=== PATIENT | female | born 1990 | race Caucasian/White ===

== ENCOUNTER → 2023-01-13 | Emergency (ER) | payer MEDICAID ==
[~2023-01-13] VITALS: Ht 162.6 cm; Wt 45.0 kg
[~2023-01-13] MED LIST: CALC500C3 PO; PREN-96 PO
[2023-01-13 03:03] VITALS: BP 110/80
[2023-01-13 03:29] LABS: Basophils # (auto) 0 10 ^3/uL (0-0.2); Basophils % (auto) 0.4 % (0.0-2.0); Eosinophils # (auto) 0 10 ^3/uL (0-0.8); Hemoglobin 15.8 g/dL (12.2-16.2); Lymphocytes # (auto) 1.6 10 ^3/uL (0.4-5.4); Lymphocytes % (auto) 16.4 % (10.0-50.0); Mean Corpuscular Hemoglobin 33.7 pg (28.0-32.0); Mean Corpuscular Hgb Conc. 35.1 g/dL (32.0-36.0); Mean Corpuscular Volume 95.9 fL (80.0-100.0); Monocytes # (auto) 0.2 10 ^3/uL (0-1.3); Monocytes % (auto) 1.9 % (0.0-12.0); Neutrophils # (auto) 8.2 10 ^3/uL (1.6-8.6); Neutrophils % (auto) 81.3 % (37.0-80.0); Nucleated Red Blood Cells % 0.1 %; Red Cell Distribution Width 15.2 % (11.8-14.3)
[2023-01-13 03:46] LABS: Albumin 4.3 g/dL (3.4-5.0); Calcium 9.1 mg/dL (8.5-10.1); Potassium 3.5 mmol/L (3.5-5.1)
[2023-01-13 03:49] LABS: Bilirubin, Total 0.3 mg/dL (0.2-1.0)
== END | disposition left against medical advice (07) ==
LOC: EDUNIT# 02:36 → ER 02:40 → EDBD 02:40
DX: F41.9 Anxiety disorder, unspecified (principal); R10.2 Pelvic and perineal pain; Z53.21 Procedure and treatment not carried out due to patient leaving prior to being seen by health care provider
CPT/HCPCS: 36415; 80053; 80320; 84484; 84702; 85025; 93005

== ENCOUNTER 2023-02-07 20:51 | Emergency (ER) | payer MEDICAID ==
[~2023-02-07] VITALS: Ht 160 cm; Wt 59.1 kg
[2023-02-07] MEDS ORDERED: SODIUM CHLORIDE 0.9% 1,000 ML IV ONE (21:00)
[2023-02-07] MEDS ORDERED: KETOROLAC TROMETH 60MG/2ML VIAL IM ONE (21:00)
[2023-02-07] MEDS ORDERED: THIAMINE 100mg/ml INJ (200mg/2ml VIAL) IV ONE (21:00)
[2023-02-07] MEDS ORDERED: LORazepam 2MG/ML-1ML VIAL IM ONE (21:00)
[2023-02-07] MEDS ORDERED: ONDANSETRON ODT 4 MG TAB PO ONE (21:00)
[2023-02-07 21:50] LABS: Basophils # (auto) 0.1 10 ^3/uL (0-0.2); Basophils % (auto) 0.9 % (0.0-2.0); Eosinophils # (auto) 0 10 ^3/uL (0-0.8); Hemoglobin 15.8 g/dL (12.2-16.2); Lymphocytes # (auto) 2.2 10 ^3/uL (0.4-5.4); Lymphocytes % (auto) 23.6 % (10.0-50.0); Mean Corpuscular Hemoglobin 33.1 pg (28.0-32.0); Mean Corpuscular Hgb Conc. 33.7 g/dL (32.0-36.0); Mean Corpuscular Volume 98.1 fL (80.0-100.0); Monocytes # (auto) 0.2 10 ^3/uL (0-1.3); Monocytes % (auto) 2.5 % (0.0-12.0); Neutrophils # (auto) 6.7 10 ^3/uL (1.6-8.6); Nucleated Red Blood Cells % 0.1 %; Red Blood Cells 4.79 10^6/uL (4.0-5.20); Red Cell Distribution Width 14.1 % (11.8-14.3); White Blood Cell 9.1 10^3/uL (4.4-10.8)
[2023-02-07] MEDS ORDERED: LORazepam 2MG/ML-1ML VIAL IV ONE (22:00)
[2023-02-07] MEDS ORDERED: KETOROLAC TROMETH 30 MG/ML 1ML VIAL IV ONE (22:00)
[2023-02-07] MEDS ORDERED: ONDANSETRON HCL 4 MG/2 ML VIAL IV ONE (22:00)
[2023-02-07 22:10] LABS: Albumin 4.2 g/dL (3.4-5.0); Calcium 8.4 mg/dL (8.5-10.1); Potassium 4.3 mmol/L (3.5-5.1)
[2023-02-07 22:13] LABS: BUN/Creatinine Ratio 10.5 (10.0-20.0); Bilirubin, Total 0.4 mg/dL (0.2-1.0)
[2023-02-08 05:56] VITALS: BP 100/50
[2023-02-08] MEDS ORDERED: FOLIC ACID 1 MG, MULTIPLE VITAMIN 10 ML, MAGNESIUM SULF SDV 50% 8 MEQ, THIAMINE INJ 100... INJ SCH ×5 (12:00)
== END 2023-02-08 06:18 | disposition home or self-care (01) ==
LOC: ER 20:51 → EDBD 20:51 → ER 02-08 06:18
DX: F10.129 Alcohol abuse with intoxication, unspecified (principal); F32.9 Major depressive disorder, single episode, unspecified; Y90.0 Blood alcohol level of less than 20 mg/100 ml
CPT/HCPCS: 36415; 71045; 80053; 80320; 83690; 83880; 85025; 96361; 96374; 96375; 99284; J1885; J2060; J2405; J3411; J7030

== ENCOUNTER 2023-03-16 18:36 | Emergency (ER) | payer MEDICAID ==
[~2023-03-16] VITALS: Ht 162.6 cm; Wt 56.8 kg
[2023-03-16] MEDS ORDERED: SODIUM CHLORIDE 0.9% 1,000 ML IVB ONE (19:00)
[2023-03-16] MEDS ORDERED: LORazepam 2MG/ML-1ML VIAL IV ONE (19:00)
[2023-03-16] MEDS ORDERED: diphenhdrAMINE HCL 50 MG/1 ML VL IV ONE (19:00)
[2023-03-16 19:43] LABS: Hematocrit 43.3 % (36.0-46.0); Hemoglobin 14.5 g/dL (12.2-16.2); Mean Corpuscular Hemoglobin 33.3 pg (28.0-32.0); Mean Corpuscular Hgb Conc. 33.4 g/dL (32.0-36.0); Mean Corpuscular Volume 99.5 fL (80.0-100.0); Red Blood Cells 4.35 10^6/uL (4.0-5.20); Red Cell Distribution Width 14.6 % (11.8-14.3); White Blood Cell 6.6 10^3/uL (4.4-10.8)
[2023-03-16 20:00] VITALS: TEMP 97.5
[2023-03-16 20:00] LABS: INR 1.12 (0.9-1.15); Partial Thromboplastin Time 27.9 SEC (24.5-34.5); Prothrombin Time 11.7 sec (9.3-11.8)
[2023-03-16 20:03] LABS: Band Neutrophils % (manual) 0; Basophils % (manual) 0 (0.0-2.0); Blast Cells 0; Eosinophils % (manual) 0 (0-7); Metamyelocytes % 0; Myelocytes % 0; Promyelocytes % 0; Reactive Lymphocytes 0
[2023-03-16 20:05] VITALS: PULSE 69; RESP 20; O2SAT 98
[2023-03-16 20:16] LABS: Albumin 3.6 g/dL (3.4-5.0); Calcium 7.7 mg/dL (8.5-10.1); Potassium 3.6 mmol/L (3.5-5.1)
[2023-03-16 20:19] LABS: BUN/Creatinine Ratio 6.9 (10.0-20.0); Bilirubin, Total 0.2 mg/dL (0.2-1.0); Total Protein 6.9 g/dL (6.4-8.2)
[2023-03-16 20:46] LABS: Lymphocytes % (manual) 47 (10.0-50.0); Monocytes % (manual) 4 (0-12); Platelet Estimate Adequate
[2023-03-16 20:54] LABS: Urine Bacteria NONE SEEN /hpf (None Seen); Urine Blood Negative /uL (Negative); Urine Clarity Clear (Clear); Urine Protein, UAD Negative (Negative); Urine Specific Gravity 1.007 (1.001-1.035); Urine Urobilinogen Normal (Negative); Urine WBC <1 /hpf (0 - 5); Urine pH 5.5 (5.0-8.0)
[2023-03-16 21:03] LABS: Urine Color Straw (Yellow)
[2023-03-16 21:17] LABS: Barbiturate Scree,Urine NEGATIVE (NEGATIVE); Benzodiazephine Screen, Urine NEGATIVE (NEGATIVE); Cannabinoid Screen, Urine POSITIVE (NEGATIVE); Cocaine Screen, Urine NEGATIVE (NEGATIVE)
[2023-03-16 21:26] LABS: Amphetamine Screen, Urine NEGATIVE (NEGATIVE); Opiate Scree,Urine NEGATIVE (NEGATIVE); Phencyclidine Screen, Urine NEGATIVE (NEGATIVE)
[2023-03-17 04:28] VITALS: BP 106/63; PULSE 72; RESP 18; O2SAT 98
[2023-03-17] MEDS ORDERED: KETOROLAC TROMETH 30 MG/ML 1ML VIAL IV ONE (04:30)
== END 2023-03-17 04:35 | disposition home or self-care (01) ==
LOC: ER 18:36 → EDBD 18:36 → ER 03-17 04:35
DX: G92.9 Unspecified toxic encephalopathy (principal); R10.2 Pelvic and perineal pain; F10.129 Alcohol abuse with intoxication, unspecified; F32.9 Major depressive disorder, single episode, unspecified; F12.10 Cannabis abuse, uncomplicated; R41.82 Altered mental status, unspecified; Z79.899 Other long term (current) drug therapy; Y90.8 Blood alcohol level of 240 mg/100 ml or more
CPT/HCPCS: 36415; 80053; 80307; 80320; 81001; 83735; 84702; 85007; 85027; 85610; 85730; 96361; 96374; 96375; 99284; J1200; J1885; J2060; J7030

== ENCOUNTER 2023-06-21 08:23 | Emergency (ER) | payer MEDICAID ==
[~2023-06-21] VITALS: Ht 160 cm; Wt 61.6 kg
[2023-06-21 08:31] VITALS: BP 126/93; PULSE 97; RESP 18; O2SAT 97
[2023-06-21 08:43] LABS: Urine WBC None Seen /hpf (0 - 5)
[2023-06-21 08:53] LABS: Basophils # (auto) 0.1 10 ^3/uL (0-0.2); Basophils % (auto) 0.4 % (0.0-2.0); Eosinophils # (auto) 0 10 ^3/uL (0-0.8); Eosinophils % (auto) 0.2 % (0.0-7.0); Hematocrit 42.3 % (36.0-46.0); Hemoglobin 14.1 g/dL (12.2-16.2); Lymphocytes # (auto) 1.3 10 ^3/uL (0.4-5.4); Lymphocytes % (auto) 8.6 % (10.0-50.0); Mean Corpuscular Hemoglobin 31.9 pg (28.0-32.0); Mean Corpuscular Hgb Conc. 33.3 g/dL (32.0-36.0); Mean Corpuscular Volume 95.7 fL (80.0-100.0); Monocytes # (auto) 0.4 10 ^3/uL (0-1.3); Monocytes % (auto) 2.7 % (0.0-12.0); Neutrophils # (auto) 12.9 10 ^3/uL (1.6-8.6); Neutrophils % (auto) 88.1 % (37.0-80.0); Red Blood Cells 4.42 10^6/uL (4.0-5.20); Red Cell Distribution Width 14.2 % (11.8-14.3); White Blood Cell 14.6 10^3/uL (4.4-10.8)
[2023-06-21 09:12] LABS: Alanine Aminotransferase 10 U/L (7-40); Albumin 3.4 g/dL (3.2-4.8); Alkaline Phosphatase 72 U/L (46-116); Anion Gap 14 (5-15); Aspartate Aminotransferase 12 U/L (13-40); Bilirubin, Total 0.5 mg/dL (0.2-1.0); Calcium 6.6 mg/dL (8.5-10.1); Carbon Dioxide 19 mmol/L (20-30); Chloride 103 mmol/L (98-107); Glucose 75 mg/dL (74-106); Potassium 3.3 mmol/L (3.5-5.1); Sodium 136 mmol/L (136-145); Total Protein 4.7 g/dL (5.7-8.2)
[2023-06-21 09:20] LABS: Urine Bacteria FEW /hpf (None Seen); Urine Blood Negative /uL (Negative); Urine Clarity Clear (Clear); Urine Color Colorless (Yellow); Urine Protein, UAD Negative (Negative); Urine Specific Gravity 1.001 (1.001-1.035); Urine Urobilinogen Normal (Negative); Urine pH 5.5 (5.0-8.0)
[2023-06-21 09:40] LABS: BUN/Creatinine Ratio 13.2 (10.0-20.0); Blood Urea Nitrogen < 5 mg/dL (9-23)
== END 2023-06-21 13:03 | disposition home or self-care (01) ==
LOC: ER 08:23
DX: B34.9 Viral infection, unspecified (principal); R07.89 Other chest pain; F17.210 Nicotine dependence, cigarettes, uncomplicated; Z79.899 Other long term (current) drug therapy
CPT/HCPCS: 36415; 71046; 80053; 81001; 81025; 85025

== ENCOUNTER 2024-01-16 21:08 | Emergency (ER) | payer MEDICAID ==
[~2024-01-16] VITALS: Ht 160 cm; Wt 59.0 kg
[~2024-01-16 21:08] MED LIST changes: +ACET300T51 PO; +ACYC400T16 PO; +DICL50TA2 PO
[2024-01-16 21:27] VITALS: BP 123/85; PULSE 90; RESP 18; O2SAT 10
== END 2024-01-16 21:40 | disposition left against medical advice (07) ==
LOC: EDBD 21:08 → ER 21:08
DX: R10.9 Unspecified abdominal pain (principal); R30.9 Painful micturition, unspecified; Z53.21 Procedure and treatment not carried out due to patient leaving prior to being seen by health care provider

== ENCOUNTER 2025-03-26 11:20 | Inpatient (IN) | payer MEDICAID ==
[~2025-03-26] VITALS: Ht 160 cm; Wt 67.0 kg
[2025-03-26 11:34] VITALS: PULSE 89; RESP 21; O2SAT 99
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
[2025-03-26] MEDS: LORazepam 2MG/ML-1ML VIAL IV ONE (12:17)
[2025-03-26] MEDS: SODIUM CHLORIDE 0.9% 1,000 ML IV ONE ×2 (12:17→13:26)
[2025-03-26 12:25] LABS: Hematocrit 38.9 % (36.0-46.0); Hemoglobin 13.3 g/dL (12.2-16.2); Mean Corpuscular Hemoglobin 30.2 pg (28.0-32.0); Mean Corpuscular Volume 88.4 fL (80.0-100.0); Nucleated Red Blood Cells % 0.1 %
[2025-03-26 12:40] LABS: Alanine Aminotransferase 35 U/L (7-40); Albumin 4.4 g/dL (3.2-4.8); Alkaline Phosphatase 110 U/L (46-116); Anion Gap 16 (5-15); Calcium 8.7 mg/dL (8.7-10.4); Carbon Dioxide 21 mmol/L (20-31); Chloride 102 mmol/L (98-107); Glucose 78 mg/dL (74-106); Sodium 139 mmol/L (136-145); Total Protein 7.0 g/dL (5.7-8.2)
[2025-03-26 12:41] LABS: BUN/Creatinine Ratio 8.1 (10.0-20.0); Bilirubin, Total 0.7 mg/dL (0.2-1.0); Blood Urea Nitrogen < 5 mg/dL (9-23); Magnesium 1.5 mg/dL (1.6-2.6); Potassium 3.4 mmol/L (3.5-5.1)
[2025-03-26 12:47] LABS: Lactic Acid w/Reflex 5.0 mmol/L (0.4-2.0)
[2025-03-26] MEDS: ACETAMINOPHEN 325 MG TAB PO ONE (12:57)
[2025-03-26] MEDS: ONDANSETRON HCL 4 MG/2 ML VIAL IV ONE (12:57)
[2025-03-26] MEDS ORDERED: SODIUM CHLORIDE 0.9% 1,000 ML IV ONE (13:00)
[2025-03-26] MEDS: THIAMINE HCL 100 MG TAB PO ONE (13:26)
[2025-03-26] MEDS: MAGNESIUM SULFATE 1GM/100ML 100 ML IV ONE (13:26)
[2025-03-26 13:57] LABS: Urine Protein, UAD Negative (Negative)
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
[2025-03-26] MEDS ORDERED: ONDANSETRON HCL 4 MG/2 ML VIAL IV PRN (14:45)
--- NOTE | 2025-03-26 14:50 | DVH ---
Indication: LEFT LUMBAR REGION PAIN Technique: CT axial images of the abdomen and pelvis are obtained without contrast. Coronal and sagit maricruz reformats were obtained. Radiation Dose Information: CTDI volume is 10.1 mGy. Dose-length product is 528 mGy*cm Comparison: None FINDINGS: There is limited interpretation of the abdomen and pelvis without administration of intravenous contr ast. Lung bases demonstrate atelectasis. Adrenal glands, spleen, pancreas unremarkable in shape. Hepatic steatosis. No CT evidence for cholel ithiasis. No hydronephrosis. Bilateral medullary nephrocalcinosis. Stomach partially distended. Small bowel loops normal in caliber. Moderate volume stool in the colon. Normal appendix. Bladder partially distended. No inguinal lymphadenopathy. No aggressive osseous process. IMPRESSION: Limited evaluation without contrast. Moderate volume stool in the colon. Hepatic steatosis. Renal medullary nephrocalcinosis. Other findings as described
[2025-03-26] MEDS: POTASSIUM CHL 20 Meq TABLET PO ONE (15:03)
[2025-03-26 19:30] VITALS: PULSE 73; RESP 19; O2SAT 98
[2025-03-26 19:54] VITALS: BP 161/78; RESP 21; O2SAT 97
[2025-03-26 20:00] VITALS: PULSE 68
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
[2025-03-26] MEDS ORDERED: TEMAZEPAM 15 MG CAP PO PRN (22:00)
[2025-03-26 22:59] VITALS: TEMP 97.3
[2025-03-26] MEDS: ACETAMINOPHEN 325 MG TAB PO PRN (22:59)
[2025-03-27] MEDS ORDERED: FOLIC ACID 1 MG TAB PO SCH (10:00)
[2025-03-27] MEDS ORDERED: THIAMINE HCL 100 MG TAB PO SCH (10:00)
== END 2025-03-26 23:50 | disposition left against medical advice (07) | DRG 770 ==
LOC: ER 11:20 → OVERFLOW 14:41
PROVIDERS: ADMIT Nurse Practitioner; ATTEND Nurse Practitioner
DX: F10.139 Alcohol abuse with withdrawal, unspecified (principal); E87.20 Acidosis, unspecified; E83.42 Hypomagnesemia; S00.83XA Contusion of other part of head, initial encounter; F17.210 Nicotine dependence, cigarettes, uncomplicated; G47.00 Insomnia, unspecified; F41.9 Anxiety disorder, unspecified; Z53.29 Procedure and treatment not carried out because of patient's decision for other reasons; Y08.89XA Assault by other specified means, initial encounter; Y93.89 Activity, other specified; Y92.89 Other specified places as the place of occurrence of the external cause; Y99.8 Other external cause status
CPT/HCPCS: 36415; 70450; 70486; 71045; 72125; 74176; 80053; 80320; 81001; 81025; 83605; 83735; 84484; 85025; 96361; 96365; 96375; G0378; J2405

== ENCOUNTER 2025-04-09 17:19 | Inpatient (IN) | payer MEDICAID ==
[~2025-04-09] VITALS: Ht 160 cm; Wt 73.1 kg
[2025-04-09 17:35] VITALS: PULSE 113; RESP 16; O2SAT 98
--- NOTE | 2025-04-09 17:51 | ED.PDOC ---
History of Present Illness HPI Comments This is a 34-year-old female with past medical history of anxiety and alcohol use disorder brought to the hospital due to agitation. Patient has history of alcohol use disorder and alcohol withdrawal. The last time she drank was yesterday (does not remember the day exact time, drink whiskey) and since today developed nausea, abdominal pain and headache. She denies fever, chest pain, shortness of breaths, blurry vision, hallucination (auditory or visual), or any bowel/bladder habit changes. Patient is alert, oriented to the place and person but disoriented to time. CIWA score upon ER arrival, 18-20. Home meds: Chlordiazepoxide, hydroxyzine and prazosin Chief Complaint: Withdrawal Time Seen by MD: 17:23 Primary Care Provider: ? Allergies: Coded Allergies: NO KNOWN ALLERGIES (Unverified , 07/24/14) Home Meds Active Scripts Acyclovir (ZOVIRAX TABLET) 400 Mg Tb, 1 TAB PO BID for 5 Days, #10 TAB 3 Refills Prov:MIAN BLAND MD 07/14/23 Diclofenac Potassium (Diclofenac Potassium) 50 Mg Tab, 1 TAB PO TIDP for 5 Days, #15 TAB Prov:MIAN BLAND MD 07/14/23 Acetaminophen W/ Codeine (Acetaminophen/Codeine) 1 Tab Tab, 1 TAB PO TID for 5 Days, #15 TAB Prov:MIAN BLAND MD 07/14/23 Reported Medications Calcium Carbonate (Tums) 500 Mg Chw, 500 MG PO PRN for FOR STOMACH DISTRESS, CHW 07/24/14 Vit W/ Ferrous Fumara ( One Daily) Daily Tab, 1 TAB PO DAILY, #30 TAB 11 Refills 07/23/14 Mode of Arrival: Wheelchair Severity: Severe Timing: Days Duration: Days Past Medical History PAST MEDICAL HISTORY: Anxiety, Depression Surgical History: Denies all surgeries BREAD DUMPER History: No Pertinent BREAD DUMPER History Family History Family History: Unknown Social History Smoker: Cigarettes Alcohol: Heavy Drugs: Marijuana Lives In: Home Constitutional: denies: chills, diaphoresis, fatigue, fever, malaise, sweats, weakness, others EENTM: denies: blurred vision, double vision, ear bleeding, ear discharge, ear drainage, ear pain, ear ringing, eye pain, eye redness, hearing loss, mouth pain, mouth swelling, nasal discharge, nose bleeding, nose congestion, nose pain, photophobia, tearing, throat pain, throat swelling, voice changes, others Respiratory: denies: cough, hemoptysis, orthopnea, SOB at rest, shortness of breath, SOB with excertion, stridor, wheezing, others Cardiovascular: denies: chest pain, dizzy spells, diaphoresis, Dyspnea on exertion, edema, irregular heart beat, left arm pain, lightheadedness, palpitations, PND, syncope, others Gastrointestinal: reports: abdominal pain, nausea; denies: abdomen distended, blood streaked bowels, constipated, diarrhea, dysphagia, difficulty swallowing, hematemesis, melena, poor appetite, poor fluid intake, rectal bleeding, rectal pain, vomiting, others Genitourinary: denies: abnormal vagina bleeding, burning, dyspareunia, dysuria, flank pain, frequency, hematuria, incontinence, pain, , vagina discharge, urgency, others Neurological: reports: headache; denies: dizziness, fainting, left sided numbness, left sided weakness, numbness, paresthesia, pre-existing deficit, right sided numbness, right sided weakness, seizure, speech problems, tingling, tremors, weakness, others Musculoskeletal: denies: back pain, gout, joint pain, joint swelling, muscle pain, muscle stiffness, neck pain, others Integumetry: denies: bruises, change in color, change in hair/nails, dryness, laceration, lesions, lumps, rash, wounds, others Allergic/Immunocompromised: denies: Difficulty Healing, Frequent Infections, Hi ves, Itching, others Hematologic/Lymphatic: denies: anemia, blood clots, easy bleeding, easy bruising, swollen glands, others Endocrine: denies: excessive hunger, excessive sweating, excessive thirst, excessive urination, flushing, intolerance to cold, intolerance to heat, unexplained weight gain, unexplained weight loss, others Psychiatric: denies: anxiety, bipolar disorder, depression, hopeless, panic disorder, schizophrenia, sleepless, suicidal, others Physical Exam General Appearance: No Apparent Distress, Normal HEENT: Normal ENT Inspection, Pharynx Normal, TMs Normal Neck: Full Range of Motion, Non-Tender, Normal, Normal Inspection Respiratory: Chest Non-Tender, Lungs Clear, No Accessory Muscle Use, No Respiratory Distress, Normal Breath Sounds Cardiovascular: No Edema, No JVD, No Murmur, No Gallop, Normal Peripheral P ulses, Regular Rate/Rhythm Breast Exam: Deferred Gastrointestinal: No Organomegaly, Non Tender, No Pulsatile Mass, Normal Bowel Sounds, Soft Genitalia: Deferred Pelvic: Deferred Rectal: Deferred Extremities: No calf tenderness, Normal capillary refill, Normal inspection, Normal range of motion, Non-tender, No pedal edema Musculoskeletal : Apperance: Normal Neurologic: Alert, desk reporter II-XII nml as Tested, No Motor Deficits, Normal Affect, Normal Mood, No Sensory Deficits Cerebellar Function: Normal Reflexes: Normal Skin: Dry, Normal Color, Warm Lymphatic: No Adenopathy Was a procedure done? Was a procedure done?: No Differential Dx Considerations may include: Alcohol withdrawal Toxic encephalopathy X-Ray, Labs, Meds, VS Vital Signs Date Time Temp Pulse Resp B/P (MAP) Pulse Ox O2 Delivery O2 Flow Rate FiO2 04/09/25 19:00 94 04/09/25 17:35 113 16 132/90 (104) 98 04/09/25 17:35 113 16 98 Room Air* 0 21 04/09/25 17:21 98.4 122 24 151/ 97 98.4 Lab Test 04/09/25 18:05 04/09/25 17:44 Range/Units White Blood Count 9.1 4.4-10.8 10^3/uL Red Blood Count 4.39 4.0-5.20 10^6/uL Hemoglobin 13.3 12.2-16.2 g/dL Hematocrit 38.9 36.0-46.0 % Mean Corpuscular Volume 88.7 80.0-100.0 fL Mean Corpuscular Hemoglobin 30.3 28.0-32.0 pg Mean Corpuscular Hemoglobin Concent 34.1 32.0-36.0 g/dL Red Cell Distribution Width 15.8 H 11.8-14.3 % Platelet Count 277 140-450 10^3/uL Mean Platelet Volume 6.8 L 6.9-10.8 fL Neutrophils (%) (Auto) 76.8 37.0-80.0 % Lymphocytes (%) (Auto) 19.2 10.0-50.0 % Monocytes (%) (Auto) 3.0 0.0-12.0 % Eosinophils (%) (Auto) 0.1 0.0-7.0 % Basophils (%) (Auto) 0.9 0.0-2.0 % Neutrophils # (Auto) 7.0 1.6-8.6 10 ^3/uL Lymphocytes # (Auto) 1.7 0.4-5.4 10 ^3/uL Monocytes # (Auto) 0.3 0-1.3 10 ^3/uL Eosinophils # (Auto) 0 0-0.8 10 ^3/uL Basophils # (Auto) 0.1 0-0.2 10 ^3/uL Nucleated Red Blood Cells 0.0 % Sodium Level 140 136-145 mmol/L Potassium Level 3.9 3.5-5.1 mmol/L Chloride Level 103 98-107 mmol/L Carbon Dioxide Level 17 L 20-31 mmol/L Anion Gap 20 H 5-15 Blood Urea Nitrogen 7 L 9-23 mg/dL Creatinine 0.67 0.550-1.02 mg/dL Glomerular Filtration Rate Calc 119 >90 mL/min BUN/Creatinine Ratio 10.4 10.0-20.0 Serum Glucose 97 74-106 mg/dL Calcium Level 8.0 L 8.7-10.4 mg/dL Magnesium Lvl (Mg Sulfate Therapy) 1.82 L 4.0-7.1 mg/dL Total Bilirubin 0.3 0.2-1.0 mg/dL Aspartate Amino Transferase (AST) 25 13-40 U/L Alanine Aminotransferase (ALT) 19 7-40 U/L Alkaline Phosphatase 93 46-116 U/L Total Protein 7.1 5.7-8.2 g/dL Albumin 4.2 3.2-4.8 g/dL Plasma/Serum Blood Alcohol 198.9 H <10 mg/dL Urine Opiates Screen Neg NEGATIVE Urine Fentanyl Screen Neg NEGATIVE Urine Barbiturates Screen Neg NEGATIVE Urine Phencyclidine Screen Neg NEGATIVE Urine Amphetamines Screen Neg NEGATIVE Urine Benzodiazepines Screen Pos NEGATIVE Urine Cocaine Screen Neg NEGATIVE Urine Cannabinoids Screen Neg NEGATIVE Current Medications Medications (Trade) Dose Ordered Sig/Abena Route Start Time Stop Time Status Last Admin Lorazepam (Ativan Inj) 2 mg ONCE ONCE IV 04/09/25 17:45 04/09/25 17:49 DC 04/09/25 17:52 Sodium Chloride 1,000 ml @ 1,000 mls/hr Q1H ONCE IV 04/09/25 17:45 04/09/25 18:44 DC 04/09/25 17:52 Folic Acid 1 mg/ Dextrose 50.2 ml @ 200.8 mls/ hr ONCE ONCE INJ 04/09/25 17:45 04/09/25 17:59 DC 04/09/25 18:12 Thiamine HCl 100 mg ONCE ONCE IV 04/09/25 17:45 04/09/25 17:49 DC 04/09/25 17:52 Time of 1ST Reevaluation: 21:01 Reevaluation 1ST: Improved Patient Education/Counseling: Diagnosis, Treatment, Prognosis, Need For Follow Up Family Education/Counseling: Diagnosis, Treatment, Prognosis, Need For Follow Up Comments Patient came to the hospital due to alcohol withdrawal. Patient had tachycardia and blood pressure at 151/ Serum alcohol level is raised Patient was given Ativan, thiamine, folic acid IV fluid CIWA score was 18-20 On subsequent checkup, patient was feeling better but still had anxiety and tremor. Patient will be admitted for further management. SEPSIS Sepsis Screen Date sepsis recognized/suspect: Apr 09, 2025 Time Sepsis recognized/suspect: 1725 Recent Procedure: No On Antibiotic Therapy: No Respiratory Rate >20: No Heart Rate >90: Yes Temp<36 C (96.8 F) or >38.3 C: No SBP <90 or MAP <65 mmHG: No New Acute Mental Status Change: No Is the patient on CPAP, BIPAP,: No Physician Orders Lorazepam 2mg/Ml Inj (Ativan Inj) (04/09/25 18:00) Etoh Withdrawal Assessment (04/09/25 17:51) Etoh Withdrawal Assessment NOW (04/09/25 17:51) Vital Signs Date Time Temp Pulse Resp B/P (MAP) Pulse Ox O2 Delivery O2 Flow Rate FiO2 04/09/25 19:00 94 04/09/25 17:35 113 16 132/90 (104) 98 04/09/25 17:35 113 16 98 Room Air* 0 21 04/09/25 17:21 98.4 122 24 151/ 97 98.4 Laboratory Tests Test 04/09/25 18:05 White Blood Count 9.1 10^3/uL (4.4-10.8) Medications Medications Dose Ordered Sig/Abena Route Start Time Stop Time Status Last Admin Dose Admin Folic Acid 1 mg/ Dextrose 50.2 ml @ 200.8 mls/ hr ONCE ONCE INJ 04/09/25 17:45 04/09/25 17:59 DC 04/09/25 18:12 Lorazepam 2 mg ONCE ONCE IV 04/09/25 17:45 04/09/25 17:49 DC 04/09/25 17:52 Sodium Chloride 1,000 ml @ 1,000 mls/hr Q1H ONCE IV 04/09/25 17:45 04/09/25 18:44 DC 04/09/25 17:52 Thiamine HCl 100 mg ONCE ONCE IV 04/09/25 17:45 04/09/25 17:49 DC 04/09/25 17:52 Departure 1 Departure Time of Disposition: 21:08 Impression: Primary Impression: Alcohol withdrawal Additional Impression: Toxic encephalopathy Disposition: ADMITTED INPATIENT Admit to: Tele Condition: Guarded Critical Care Note Critical Care Time?: Yes (35 min-critical care time only) Stability Stability form required: No Heart Score Heart Score: Heart Score Response (Comments) Value History N/A 0 EKG N/A 0 Age N/A 0 Risk Factors N/A 0 Troponin N/A 0 Total 0 RAFAL SHARP RESDIENT Apr 09, 2025 17:51
[2025-04-09] MEDS: LORazepam 2MG/ML-1ML VIAL IV ONE (17:52)
[2025-04-09] MEDS: THIAMINE 100mg/ml INJ (200mg/2ml VIAL) IV ONE (17:52)
[2025-04-09] MEDS: SODIUM CHLORIDE 0.9% 1,000 ML IV ONE (17:52)
[2025-04-09] MEDS: FOLIC ACID 1 MG in D5W 5% 50 ML INJ ONE (18:12)
[2025-04-09 18:20] LABS: Hematocrit 38.9 % (36.0-46.0); Hemoglobin 13.3 g/dL (12.2-16.2); Mean Corpuscular Hemoglobin 30.3 pg (28.0-32.0); Mean Corpuscular Volume 88.7 fL (80.0-100.0); Nucleated Red Blood Cells % 0.0 %
[2025-04-09 18:36] LABS: Alanine Aminotransferase 19 U/L (7-40); Alkaline Phosphatase 93 U/L (46-116); Anion Gap 20 (5-15); BUN/Creatinine Ratio 10.4 (10.0-20.0); Chloride 103 mmol/L (98-107); Glucose 97 mg/dL (74-106); Magnesium,Therapeutic 1.82 mg/dL (4.0-7.1); Potassium 3.9 mmol/L (3.5-5.1); Sodium 140 mmol/L (136-145); Total Protein 7.1 g/dL (5.7-8.2)
[2025-04-09 18:37] LABS: Albumin 4.2 g/dL (3.2-4.8); Bilirubin, Total 0.3 mg/dL (0.2-1.0)
[2025-04-09 18:38] LABS: Blood Urea Nitrogen 7 mg/dL (9-23); Calcium 8.0 mg/dL (8.7-10.4); Carbon Dioxide 17 mmol/L (20-31)
--- NOTE | 2025-04-09 19:02 | ECG ---
[facility] Test Date: 2025-04-09 Test Time: 18:53:43 Pat Name: VANDANA HANSEN Department: Room: 0240T Gender: F Geological Technician: JOSI : 1990 Requested By: RAFAL SHARP Order Number: [id number] Reading MD: Sreekanth Bowden Measurements Intervals [place] Rate: 94 P: 65 KS: 162 QRS: 61 QRSD: 84 T: 60 QT: 382 QTc: 478 Interpretive Statements Sinus rhythm Borderline prolonged QT interval Electronically Signed On 04-15-2025 9:23:29 PDT by Sreekanth Bowden Please click the below link to view image of tracing.
[2025-04-09 19:57] LABS: Amphetamine Screen, Urine Neg (NEGATIVE); Benzodiazephine Screen, Urine Pos (NEGATIVE)
[2025-04-09 20:27] LABS: Barbiturate Scree,Urine Neg (NEGATIVE); Cannabinoid Screen, Urine Neg (NEGATIVE); Cocaine Screen, Urine Neg (NEGATIVE); Opiate Scree,Urine Neg (NEGATIVE); Phencyclidine Screen, Urine Neg (NEGATIVE)
[2025-04-09] MEDS ORDERED: MORPHINE SULFATE INJ 2 MG/ml SYRG IV PRN (22:15)
[2025-04-09] MEDS ORDERED: DOCUSATE SOD 100 MG CAP PO PRN (22:15)
[2025-04-09] MEDS ORDERED: NITROGLYCERIN 0.4 MG SL TAB SL PRN (22:15)
--- NOTE | 2025-04-09 22:15 | DVHHP2 ---
History of Present Illness Reason for Visit: Alcohol withdrawal History of Present Illness The patient is a 34-year-old female with past medical history of EtOH abuse, anxiety, and depression who presented to [facility] ED with complaint of alcohol withdrawal symptoms. Patient admits to drinking whiskey heavily yesterday and developed nausea, abdominal pain, headache, agitation, and tremor. Patient was seen and evaluated in the ED, laboratory data shows WBC 9.1, platelets 277, sodium 140, potassium 3.9, BUN 7, creatinine 0.67, glucose 97, calcium 8.0, magnesium 1.82, alcohol level 198.9, blood pressure 132/90, heart rate 112, temperature 98.4 F, O2 saturation 98% on room air. Patient was given banana bag, please see medication orders section in the computer. On my assessment, patient denied chest pain, no headache, no dizziness, no diaphoresis, no shortness of breaths, no nausea, no vomiting, no fever, no chills. Patient was admitted for further evaluation and medical management. Past Medical History Anxiety, Depression Past Surgical History Denies all surgeries Family History Reviewed, noncontributory to the management of this case. Past Social History The patient lives at home, smokes cigarettes, drinks alcohol heavily, uses marijuana. Review of Systems Constitutional: No: Fever, Chills, Sweats, Weakness, Malaise, Other Eyes: No: Pain, Vision change, Conjunctivae inflammation, Eyelid inflammation, Other, Redness ENT: No: Ear pain, Ear discharge, Nose pain, Nose discharge, Nose congestion, Mouth pain, Mouth swelling, Throat pain, Throat swelling, Other Respiratory: No: Cough, Dry, Shortness of breath, SOB with excertion, Wheezing, Hemoptysis, Pleuritic Pain, Sputum, Wheezing, Other Cardiovascular: No: Chest Pain, Palpitations, Orthopnea, Paroxysmal Noc. Dyspnea, Edema, Lt Headedness, Other Gastrointestinal: Nausea, Abdominal Pain; No: Vomiting, Diarrhea, Constipation, Melena, Hematochezia, Other Genitourinary: No Dysuria, No Frequency, No Incontinence, No Hematuria, No Retention, No Other Musculoskeletal: No: other, neck pain, shoulder pain, arm pain, back pain, hand pain, leg pain, foot pain Skin: No: Rash, Lesions, Jaundice, Bruising, Other Neurological: Other (Headache); No: Weakness, Numbness, Incoordination, Change in speech, Confusion, Seizures Allergies: Coded Allergies: NO KNOWN ALLERGIES (Unverified , 07/24/14) Medications Current Medications Medications Dose Ordered Sig/Abena Route Start Time Stop Time Status Last Admin Dose Admin Lorazepam 1 mg Q2HPRN PRN IV 04/09/25 18:00 Folic Acid 1 mg/ Dextrose 50.2 ml @ 200.8 mls/ hr DAILY INJ 04/10/25 10:00 UNV Thiamine HCl 100 mg DAILY IV 04/10/25 10:00 UNV Sodium Chloride 1,000 ml @ 60 mls/hr [id number] IV 04/09/25 22:15 UNV Acetaminophen/ Hydrocodone Bitart 1 tab Q4HP PRN PO 04/09/25 22:15 UNV Exam Vital Signs Vital Signs Date Time Temp Pulse Resp B/P (MAP) Pulse Ox O2 Delivery O2 Flow Rate FiO2 04/09/25 19:00 94 04/09/25 17:35 16 132/90 (104) 98 04/09/25 17:35 Room Air* 0 21 04/09/25 17:21 98.4 98.4 General Appearance: Alert, Oriented X3, Cooperative, No acute distress HEENT: Atraumatic, PERRLA, EOMI, Mucous membr. moist/pink Respiratory: Clear to auscultation, Normal air movement Cardiovascular: Regular rate, Normal S1, Normal S2, No murmurs Abdominal: Normal bowel sounds, Soft, No tenderness, No hepatospenomegaly, No masses Extremities: No clubbing, No cyanosis, No edema, Normal pulses, No tend erness/swelling Skin: No rashes, No breakdown, No significant lesion Neuro: Normal gait, Normal speech, Strength at 5/5 X4 ext, Normal tone, Sensation intact, Cranial nerves 3-12 NL, Reflexes 2+, Other (Tremors) Psych/Mental Status: Mental status NL, Mood NL Labs/Xrays Labs Test 04/09/25 18:05 04/09/25 17:44 Range/Units White Blood Count 9.1 4.4-10.8 10^3/uL Red Blood Count 4.39 4.0-5.20 10^6/uL Hemoglobin 13.3 12.2-16.2 g/dL Hematocrit 38.9 36.0-46.0 % Mean Corpuscular Volume 88.7 80.0-100.0 fL Mean Corpuscular Hemoglobin 30.3 28.0-32.0 pg Mean Corpuscular Hemoglobin Concent 34.1 32.0-36.0 g/dL Red Cell Distribution Width 15.8 H 11.8-14.3 % Platelet Count 277 140-450 10^3/uL Mean Platelet Volume 6.8 L 6.9-10.8 fL Neutrophils (%) (Auto) 76.8 37.0-80.0 % Lymphocytes (%) (Auto) 19.2 10.0-50.0 % Monocytes (%) (Auto) 3.0 0.0-12.0 % Eosinophils (%) (Auto) 0.1 0.0-7.0 % Basophils (%) (Auto) 0.9 0.0-2.0 % Neutrophils # (Auto) 7.0 1.6-8.6 10 ^3/uL Lymphocytes # (Auto) 1.7 0.4-5.4 10 ^3/uL Monocytes # (Auto) 0.3 0-1.3 10 ^3/uL Eosinophils # (Auto) 0 0-0.8 10 ^3/uL Basophils # (Auto) 0.1 0-0.2 10 ^3/uL Nucleated Red Blood Cells 0.0 % Sodium Level 140 136-145 mmol/L Potassium Level 3.9 3.5-5.1 mmol/L Chloride Level 103 98-107 mmol/L Carbon Dioxide Level 17 L 20-31 mmol/L Anion Gap 20 H 5-15 Blood Urea Nitrogen 7 L 9-23 mg/dL Creatinine 0.67 0.550-1.02 mg/dL Glomerular Filtration Rate Calc 119 >90 mL/min BUN/Creatinine Ratio 10.4 10.0-20.0 Serum Glucose 97 74-106 mg/dL Calcium Level 8.0 L 8.7-10.4 mg/dL Magnesium Lvl (Mg Sulfate Therapy) 1.82 L 4.0-7.1 mg/dL Total Bilirubin 0.3 0.2-1.0 mg/dL Aspartate Amino Transferase (AST) 25 13-40 U/L Alanine Aminotransferase (ALT) 19 7-40 U/L Alkaline Phosphatase 93 46-116 U/L Total Protein 7.1 5.7-8.2 g/dL Albumin 4.2 3.2-4.8 g/dL Plasma/Serum Blood Alcohol 198.9 H <10 mg/dL Urine Opiates Screen Neg NEGATIVE Urine Fentanyl Screen Neg NEGATIVE Urine Barbiturates Screen Neg NEGATIVE Urine Phencyclidine Screen Neg NEGATIVE Urine Amphetamines Screen Neg NEGATIVE Urine Benzodiazepines Screen Pos NEGATIVE Urine Cocaine Screen Neg NEGATIVE Urine Cannabinoids Screen Neg NEGATIVE SEPSIS Sepsis Screen Date sepsis recognized/suspect: Apr 09, 2025 Time Sepsis recognized/suspect: 1725 Recent Procedure: No On Antibiotic Therapy: No Respiratory Rate >20: No Heart Rate >90: Yes Temp<36 C (96.8 F) or >38.3 C: No SBP <90 or MAP <65 mmHG: No New Acute Mental Status Change: No Is the patient on CPAP, BIPAP,: No Physician Orders Lorazepam 2mg/Ml Inj (Ativan Inj) (04/09/25 18:00) Etoh Withdrawal Assessment (04/09/25 17:51) Etoh Withdrawal Assessment NOW (04/09/25 17:51) Folic Acid Ivpb (04/10/25 10:00) Thiamine Inj (04/10/25 10:00) Admit (04/09/25 22:10) Allergies (04/09/25 22:10) Code Status (04/09/25 22:10) 0.9% Ns 1000 Ml (04/09/25 22:15) Oxygen Per Hour (04/09/25 22:10) Hydrocodone-Acet 5/325mg Tab (Staley 5/32 (04/09/25 22:15) Ondansetron Hcl (Zofran) (04/09/25 22:15) Docusate Sodium Capsule (Colace Capsule) (04/09/25 22:15) Fall Risk Precautions In Place QSHIFT (04/09/25 22:10) Complete Blood Count (04/10/25 04:00) Comprehensive Metabolic Panel (04/10/25 04:00) Cardiac Diet-2gna,Lofat,Lochol (04/10/25 Breakfast) Condition: Serious (04/09/25 22:10) Acetaminophen Tablet (Tylenol Tablet) (04/09/25 22:15) Maintain Bed Rest (04/09/25 22:10) Sequential Compression Device (04/09/25 ) Nitroglycerin Sublingual (Ntrostat Subli (04/09/25 22:15) Morphine Sulfate Injection (04/09/25 22:15) Stat Ekg For Chest Pain (04/09/25 22:10) Notify Md Of Changes From Base (04/09/25 22:10) Dairy Lab Technician For 24 Hours (04/09/25 22:10) Emergency Dysrhythmia Protocol (04/09/25 22:10) Rhythm Strips Once Every Shift (04/09/25 22:10) Oxygen By Nasal Cannula (04/09/25 22:10) Vital Signs Date Time Temp Pulse Resp B/P (MAP) Pulse Ox O2 Delivery O2 Flow Rate FiO2 04/09/25 19:00 94 04/09/25 17:35 113 16 132/90 (104) 98 04/09/25 17:35 113 16 98 Room Air* 0 21 04/09/25 17:21 98.4 122 24 151/ 97 98.4 Laboratory Tests Test 04/09/25 18:05 White Blood Count 9.1 10^3/uL (4.4-10.8) Medications Medications Dose Ordered Sig/Abena Route Start Time Stop Time Status Last Admin Dose Admin Folic Acid 1 mg/ Dextrose 50.2 ml @ 200.8 mls/ hr ONCE ONCE INJ 04/09/25 17:45 04/09/25 17:59 DC 04/09/25 18:12 200.8 MLS/HR Lorazepam 2 mg ONCE ONCE IV 04/09/25 17:45 04/09/25 17:49 DC 04/09/25 17:52 2 MG Sodium Chloride 1,000 ml @ 1,000 mls/hr Q1H ONCE IV 04/09/25 17:45 04/09/25 18:44 DC 04/09/25 17:52 1,000 MLS/HR Thiamine HCl 100 mg ONCE ONCE IV 04/09/25 17:45 04/09/25 17:49 DC 04/09/25 17:52 100 MG Assessment/Plan Assessment/Plan Alcohol withdrawal Toxic encephalopathy Plan 1. Admit to telemetry unit 2. Breathing treatment 3. Pain control management 4. Management of fluids and electrolytes 5. Consultation for hospitalist 6. Diagnostic tests chest x-ray 7. DVT prophylaxis-on SCDs 8. Repeat labs CBC, CMP in a.m. 9. Continue with current medical management 10. Treatment plan discussed with patient and RN. Patient verbalized understanding. Plan discussed with: Patient, Other (RN) My Orders Orders - ADRIEL LYLE DNP Procedure Category Date Status Time Folic Acid Ivpb PHA 04/10/25 Transmitted 10:00 Thiamine Inj PHA 04/10/25 Transmitted 10:00 Admit ADMIT 04/09/25 Transmitted 22:10 Allergies [facility] 04/09/25 In Process 22:10 Code Status CODE 04/09/25 Transmitted 22:10 0.9% Ns 1000 Ml PHA 04/09/25 Transmitted 22:15 Oxygen Per Hour RT 04/09/25 Transmitted 22:10 Hydrocodone-Acet PHA 04/09/25 Transmitted 5/325mg Tab (Staley 22:15 Ondansetron Hcl [facility] 04/09/25 Transmitted (Zofran) 22:15 Docusate Sodium [facility] 04/09/25 Transmitted Capsule (Colace 22:15 Fall Risk Precautions [facility] 04/09/[address] 22:10 Complete Blood Count LAB 04/10/25 Verified 04:00 Comprehensive LAB 04/10/25 Verified Metabolic Panel 04:00 Cardiac DIET 04/10/25 Transmitted Diet-2gna,Lofat,Lochol Breakfast Condition: Serious [facility] 04/09/25 In Process 22:10 Acetaminophen Tablet [facility] 04/09/25 Transmitted (Tylenol Tablet) 22:15 Maintain Bed Rest [facility] 04/09/25 In Process 22:10 Sequential [facility] 04/09/25 In Process Compression Device Nitroglycerin [facility] 04/09/25 Transmitted Sublingual (Ntrostat 22:15 Morphine Sulfate [facility] 04/09/25 Transmitted Injection 22:15 Stat Ekg For Chest [facility] 04/09/25 Transmitted Pain 22:10 Notify Md Of Changes [facility] 04/09/25 Transmitted From Base 22:10 Dairy Lab Technician For [facility] 04/09/25 Transmitted 24 Hours 22:10 Emergency Dysrhythmia [facility] 04/09/25 Transmitted Protocol 22:10 Rhythm Strips Once [facility] 04/09/25 Transmitted Every Shift 22:10 Oxygen By Nasal RT 04/09/25 Transmitted Cannula 22:10 Problem List: (1) Alcohol withdrawal (2) Toxic encephalopathy Date of Service: Apr 09, 2025 Billing Provider: ADRIEL LYLE DNP Common Visit Codes: [id number] INP/OBS CARE (HIGH) ADRIEL LYLE DNP Apr 09, 2025 22:15
[2025-04-09] MEDS: SODIUM CHLORIDE 0.9% 1,000 ML IV SCH (23:00)
[2025-04-10] VITALS (9 sets, daily range): BP systolic 104–135; BP diastolic 69–98; PULSE 17–93; RESP 16–18; TEMP 97.9–98.4; O2SAT 76–99
[2025-04-10] MEDS: LORazepam 2MG/ML-1ML VIAL IV PRN (00:55)
[2025-04-10 07:06] LABS: Hematocrit 35.4 % (36.0-46.0); Hemoglobin 12.3 g/dL (12.2-16.2); Mean Corpuscular Hemoglobin 30.5 pg (28.0-32.0); Mean Corpuscular Volume 87.9 fL (80.0-100.0); Nucleated Red Blood Cells % 0.0 %
[2025-04-10 07:15] LABS: Alanine Aminotransferase 17 U/L (7-40); Albumin 3.9 g/dL (3.2-4.8); Alkaline Phosphatase 89 U/L (46-116); Anion Gap 10 (5-15); BUN/Creatinine Ratio 12.7 (10.0-20.0); Bilirubin, Total 1.0 mg/dL (0.2-1.0); Blood Urea Nitrogen 9 mg/dL (9-23); Carbon Dioxide 25 mmol/L (20-31); Chloride 103 mmol/L (98-107); Potassium 4.1 mmol/L (3.5-5.1); Sodium 138 mmol/L (136-145); Total Protein 6.4 g/dL (5.7-8.2)
[2025-04-10 07:18] LABS: Calcium 8.1 mg/dL (8.7-10.4); Glucose 73 mg/dL (74-106)
[2025-04-10] MEDS: THIAMINE 100mg/ml INJ (200mg/2ml VIAL) IV SCH (08:34)
[2025-04-10] MEDS: MULTIPLE VITAMIN TAB PO SCH (08:34)
[2025-04-10] MEDS: FOLIC ACID 1 MG in D5W 5% 50 ML INJ SCH (11:35)
--- NOTE | 2025-04-10 11:38 | DVHPN2 ---
Subjective 34-year-old female alcoholic came with alcohol withdrawal Changes from previous H/P or p: Changes Eyes: No Pain, No Vision change, No Conjunctivae inflammation, No Eyelid inflammation, No Other, No Redness ENT: No Ear pain, No Ear discharge, No Nose pain, No Nose discharge, No Nose congestion, No Mouth pain, No Mouth swelling, No Throat pain, No Throat swelling, No Other Cardiovascular: No Chest Pain, No Palpitations, No Orthopnea, No Paroxysmal Noc. Dyspnea, No Edema, No Lt Headedness, No Other Respiratory: No Cough, No Dry, No Shortness of breath, No SOB with excertion, No Wheezing, No Hemoptysis, No Pleuritic Pain, No Sputum, No Other Gastrointestinal: Nausea; No Vomiting; Abdominal Pain; No Diarrhea, No Constipation, No Melena, No Hematochezia, No Other Genitourinary: No Dysuria, No Frequency, No Incontinence, No Hematuria, No Retention, No Other Musculoskeletal: No other, No neck pain, No shoulder pain, No arm pain, No back pain, No hand pain, No leg pain, No foot pain Skin: No Rash, No Lesions, No Jaundice, No Bruising, No Other Objective Vitals Vital Signs Date Time Temp Pulse Resp B/P (MAP) Pulse Ox O2 Delivery O2 Flow Rate FiO2 04/10/25 09:00 98.1 17 104/69 (81) 98 98.1 04/10/25 05:00 18 04/10/25 01:06 Room Air* 0 21 Intake/Output Intake and Output 04/10/25 07:00 Intake Total 450.2 ml Balance 450.2 ml Intake Oral 400 ml IV Total 50.2 ml General Appearance: Alert, Oriented X3, Cooperative Lungs: Clear to auscultation, Normal air movement Cardiovascular: Regular rate, Normal S1, Normal S2 Abdomen: Normal bowel sounds, Soft, No tenderness Extremities: No edema Medications Current Medications Medications Dose Ordered Sig/Abena Route Start Time Stop Time Status Last Admin Dose Admin Lorazepam 1 mg Q2HPRN PRN IV 04/09/25 18:00 04/10/25 08:33 1 MG Folic Acid 1 mg/ Dextrose 50.2 ml @ 200.8 mls/ hr DAILY INJ 04/10/25 10:00 04/10/25 11:35 200.8 MLS/HR Thiamine HCl 100 mg DAILY IV 04/10/25 10:00 04/10/25 08:34 100 MG Sodium Chloride 1,000 ml @ 60 mls/hr [id number] IV 04/09/25 22:15 04/09/25 23:00 60 MLS/HR Acetaminophen/ Hydrocodone Bitart 1 tab Q4HP PRN PO 04/09/25 22:15 Ondansetron HCl 4 mg Q4HP PRN IV 04/09/25 22:15 Docusate Sodium 100 mg BIDPRN PRN PO 04/09/25 22:15 Acetaminophen 650 mg Q6HP PRN PO 04/09/25 22:15 Nitroglycerin 0.4 mg Q5MINP PRN SL 04/09/25 22:15 Morphine Sulfate 2 mg Q30M PRN IV 04/09/25 22:15 Multivitamins 1 tab DAILY PO 04/10/25 10:00 04/10/25 08:34 1 TAB Laboratory Results Laboratory Tests 04/10/25 05:51 Chemistry Test 04/09/25 18:05 04/10/25 05:51 Albumin 4.2 g/dL (3.2-4.8) 3.9 g/dL (3.2-4.8) Calcium Level 8.0 mg/dL (8.7-10.4) L 8.1 mg/dL (8.7-10.4) L Total Protein 7.1 g/dL (5.7-8.2) 6.4 g/dL (5.7-8.2) LFT Test 04/09/25 18:05 04/10/25 05:51 Alanine Aminotransferase (ALT) 19 U/L (7-40) 17 U/L (7-40) Alkaline Phosphatase 93 U/L (46-116) 89 U/L (46-116) Aspartate Amino Transferase (AST) 25 U/L (13-40) 26 U/L (13-40) Total Bilirubin 0.3 mg/dL (0.2-1.0) 1.0 mg/dL (0.2-1.0) Assessment/Plan Assessment/Plan Alcohol withdrawal Toxic encephalopathy Metabolic acidosis Alcohol intoxication Plan IV fluids Multivitamins Folic acid Thiamine Lorazepam as needed Monitor closely The rest of the management will depend on the hospital course Full code Plan discussed with: Patient Date of Service: Apr 10, 2025 Billing Provider: EVE RAMIREZ MD Common Visit Codes: [id number] INP/OBS CARE(HIGH) Secondary Visit Codes: [id number] CARE PLAN 30 MINUTES EVE RAMIREZ MD Apr 10, 2025 11:38
[2025-04-11] VITALS (9 sets, daily range): BP systolic 113–132; BP diastolic 72–95; PULSE 66–91; RESP 15–20; TEMP 97.6–98.6; O2SAT 76–100
[2025-04-11 07:40] LABS: Alanine Aminotransferase 17 U/L (7-40); Albumin 4.0 g/dL (3.2-4.8); Alkaline Phosphatase 93 U/L (46-116); Anion Gap 13 (5-15); BUN/Creatinine Ratio 8.6 (10.0-20.0); Bilirubin, Total 0.6 mg/dL (0.2-1.0); Calcium 9.2 mg/dL (8.7-10.4); Carbon Dioxide 23 mmol/L (20-31); Chloride 105 mmol/L (98-107); Magnesium 1.8 mg/dL (1.6-2.6); Potassium 3.6 mmol/L (3.5-5.1); Sodium 141 mmol/L (136-145); Total Protein 6.5 g/dL (5.7-8.2)
[2025-04-11 07:42] LABS: Blood Urea Nitrogen 8 mg/dL (9-23); Glucose 145 mg/dL (74-106)
[2025-04-11] MEDS: ACETAMINOPHEN 325 MG TAB PO PRN (08:33)
--- NOTE | 2025-04-11 10:47 | DVHPN2 ---
Subjective Still showing severe tremors and restlessness Changes from previous H/P or p: Changes Eyes: No Pain, No Vision change, No Conjunctivae inflammation, No Eyelid inflammation, No Other, No Redness ENT: No Ear pain, No Ear discharge, No Nose pain, No Nose discharge, No Nose congestion, No Mouth pain, No Mouth swelling, No Throat pain, No Throat swelling, No Other Cardiovascular: No Chest Pain, No Palpitations, No Orthopnea, No Paroxysmal Noc. Dyspnea, No Edema, No Lt Headedness, No Other Respiratory: No Cough, No Dry, No Shortness of breath, No SOB with excertion, No Wheezing, No Hemoptysis, No Pleuritic Pain, No Sputum, No Other Gastrointestinal: Nausea; No Vomiting; Abdominal Pain; No Diarrhea, No Constipation, No Melena, No Hematochezia, No Other Genitourinary: No Dysuria, No Frequency, No Incontinence, No Hematuria, No Retention, No Other Musculoskeletal: No other, No neck pain, No shoulder pain, No arm pain, No back pain, No hand pain, No leg pain, No foot pain Skin: No Rash, No Lesions, No Jaundice, No Bruising, No Other Objective Vitals Vital Signs Date Time Temp Pulse Resp B/P (MAP) Pulse Ox O2 Delivery O2 Flow Rate FiO2 04/11/25 08:35 98.2 73 20 113/72 (86) 98 98.2 04/11/25 08:00 Room Air* 0 21 Intake/Output Intake and Output 04/11/25 07:00 Intake Total 4610.2 ml Output Total 200 ml Balance 4410.2 ml Intake Oral 3880 ml IV Total 730.2 ml Output Urine/Stool Mix 200 ml # Voids 10 General Appearance: Alert, Oriented X3, Cooperative Lungs: Clear to auscultation, Normal air movement Cardiovascular: Regular rate, Normal S1, Normal S2 Abdomen: Normal bowel sounds, Soft, No tenderness Extremities: No edema Medications Current Medications Medications Dose Ordered Sig/Abena Route Start Time Stop Time Status Last Admin Dose Admin Lorazepam 1 mg Q2HPRN PRN IV 04/09/25 18:00 04/11/25 08:45 1 MG Folic Acid 1 mg/ Dextrose 50.2 ml @ 200.8 mls/ hr DAILY INJ 04/10/25 10:00 04/11/25 10:10 200.8 MLS/HR Thiamine HCl 100 mg DAILY IV 04/10/25 10:00 04/11/25 10:09 100 MG Sodium Chloride 1,000 ml @ 60 mls/hr [id number] IV 04/09/25 22:15 04/11/25 08:30 60 MLS/HR Acetaminophen/ Hydrocodone Bitart 1 tab Q4HP PRN PO 04/09/25 22:15 Ondansetron HCl 4 mg Q4HP PRN IV 04/09/25 22:15 Docusate Sodium 100 mg BIDPRN PRN PO 04/09/25 22:15 Acetaminophen 650 mg Q6HP PRN PO 04/09/25 22:15 04/11/25 08:33 650 MG Nitroglycerin 0.4 mg Q5MINP PRN SL 04/09/25 22:15 Morphine Sulfate 2 mg Q30M PRN IV 04/09/25 22:15 Multivitamins 1 tab DAILY PO 04/10/25 10:00 04/11/25 10:09 1 TAB Laboratory Results Laboratory Tests 04/10/25 05:51 04/11/25 05:51 Chemistry Test 04/11/25 05:51 Albumin 4.0 g/dL (3.2-4.8) Calcium Level 9.2 mg/dL (8.7-10.4) Magnesium Level 1.8 mg/dL (1.6-2.6) Total Protein 6.5 g/dL (5.7-8.2) LFT Test 04/11/25 05:51 Alanine Aminotransferase (ALT) 17 U/L (7-40) Alkaline Phosphatase 93 U/L (46-116) Aspartate Amino Transferase (AST) 23 U/L (13-40) Total Bilirubin 0.6 mg/dL (0.2-1.0) Assessment/Plan Assessment/Plan Alcohol withdrawal Toxic encephalopathy Metabolic acidosis Alcohol intoxication Plan IV fluids Multivitamins Folic acid Thiamine Lorazepam as needed Monitor closely The rest of the management will depend on the hospital course Full code 04/11/2025: Add Librium Continue Ativan as needed IV fluids Multivitamins Monitor closely Plan discussed with: Patient Date of Service: Apr 11, 2025 Billing Provider: EVE RAMIREZ MD Common Visit Codes: [id number] INP/OBS CARE(HIGH) EVE RAMIREZ MD Apr 11, 2025 10:47
[2025-04-11] MEDS ORDERED: TRAZ150T84 PO (21:57)
[2025-04-12] VITALS (9 sets, daily range): BP systolic 102–121; BP diastolic 64–87; PULSE 61–103; RESP 15–20; TEMP 97.8–98.3; O2SAT 95–98
[2025-04-12] MEDS: ONDANSETRON HCL 4 MG/2 ML VIAL IV PRN (01:18)
[2025-04-12 05:37] LABS: Anion Gap 10 (5-15); Calcium 9.2 mg/dL (8.7-10.4); Carbon Dioxide 23 mmol/L (20-31); Chloride 106 mmol/L (98-107); Potassium 4.0 mmol/L (3.5-5.1); Sodium 139 mmol/L (136-145)
[2025-04-12 05:43] LABS: BUN/Creatinine Ratio 10.4 (10.0-20.0); Glucose 99 mg/dL (74-106)
[2025-04-12 05:44] LABS: Magnesium 1.7 mg/dL (1.6-2.6)
[2025-04-12 05:55] LABS: Blood Urea Nitrogen 8 mg/dL (9-23)
[2025-04-12] MEDS ORDERED: MAGNESIUM SULFATE 1GM/100ML 200 ML IV ONE (10:07)
[2025-04-12] MEDS: MAGNESIUM SULFATE 1GM/100ML 100 ML IV SCH (10:31)
--- NOTE | 2025-04-12 11:23 | DVHPN2 ---
Subjective Still showing severe tremors and restlessness Changes from previous H/P or p: Changes Eyes: No Pain, No Vision change, No Conjunctivae inflammation, No Eyelid inflammation, No Other, No Redness ENT: No Ear pain, No Ear discharge, No Nose pain, No Nose discharge, No Nose congestion, No Mouth pain, No Mouth swelling, No Throat pain, No Throat swelling, No Other Cardiovascular: No Chest Pain, No Palpitations, No Orthopnea, No Paroxysmal Noc. Dyspnea, No Edema, No Lt Headedness, No Other Respiratory: No Cough, No Dry, No Shortness of breath, No SOB with excertion, No Wheezing, No Hemoptysis, No Pleuritic Pain, No Sputum, No Other Gastrointestinal: Nausea; No Vomiting; Abdominal Pain; No Diarrhea, No Constipation, No Melena, No Hematochezia, No Other Genitourinary: No Dysuria, No Frequency, No Incontinence, No Hematuria, No Retention, No Other Musculoskeletal: No other, No neck pain, No shoulder pain, No arm pain, No back pain, No hand pain, No leg pain, No foot pain Skin: No Rash, No Lesions, No Jaundice, No Bruising, No Other Objective Vitals Vital Signs Date Time Temp Pulse Resp B/P (MAP) Pulse Ox O2 Delivery O2 Flow Rate FiO2 04/12/25 09:07 97.9 65 20 103/64 (77) 95 97.9 04/12/25 08:00 Room Air* 0 21 Intake/Output Intake and Output 04/12/25 07:00 Intake Total 4140 ml Output Total 2000 ml Balance 2140 ml Intake Oral 3140 ml IV Total 1000 ml Output Urine Total 2000 ml # Voids 2 # Bowel Movements 2 General Appearance: Alert, Oriented X3, Cooperative Lungs: Clear to auscultation, Normal air movement Cardiovascular: Regular rate, Normal S1, Normal S2 Abdomen: Normal bowel sounds, Soft, No tenderness Extremities: No edema Medications Current Medications Medications Dose Ordered Sig/Abena Route Start Time Stop Time Status Last Admin Dose Admin Lorazepam 1 mg Q2HPRN PRN IV 04/09/25 18:00 04/11/25 23:22 1 MG Folic Acid 1 mg/ Dextrose 50.2 ml @ 200.8 mls/ hr DAILY INJ 04/10/25 10:00 04/12/25 09:44 200.8 MLS/HR Thiamine HCl 100 mg DAILY IV 04/10/25 10:00 04/12/25 09:43 100 MG Sodium Chloride 1,000 ml @ 60 mls/hr [id number] IV 04/09/25 22:15 04/12/25 00:24 60 MLS/HR Acetaminophen/ Hydrocodone Bitart 1 tab Q4HP PRN PO 04/09/25 22:15 Ondansetron HCl 4 mg Q4HP PRN IV 04/09/25 22:15 04/12/25 01:18 4 MG Docusate Sodium 100 mg BIDPRN PRN PO 04/09/25 22:15 Acetaminophen 650 mg Q6HP PRN PO 04/09/25 22:15 04/11/25 15:39 650 MG Nitroglycerin 0.4 mg Q5MINP PRN SL 04/09/25 22:15 Morphine Sulfate 2 mg Q30M PRN IV 04/09/25 22:15 Multivitamins 1 tab DAILY PO 04/10/25 10:00 04/12/25 09:43 1 TAB Chlordiazepoxide HCl 25 mg Q8HPRN PRN PO 04/11/25 11:00 04/12/25 05:15 25 MG Trazodone HCl 150 mg HS PO 04/11/25 23:00 04/12/25 00:21 150 MG Magnesium Sulfate/ Dextrose 100 ml @ 100 mls/hr Q1HR IV 04/12/25 10:00 04/12/25 11:59 04/12/25 10:31 100 MLS/HR Laboratory Results Laboratory Tests 04/10/25 05:51 04/12/25 05:03 Chemistry Test 04/12/25 05:03 Calcium Level 9.2 mg/dL (8.7-10.4) Magnesium Level 1.7 mg/dL (1.6-2.6) Assessment/Plan Assessment/Plan Alcohol withdrawal Toxic encephalopathy Metabolic acidosis Alcohol intoxication Plan IV fluids Multivitamins Folic acid Thiamine Lorazepam as needed Monitor closely The rest of the management will depend on the hospital course Full code 04/11/2025: Add Librium Continue Ativan as needed IV fluids Multivitamins Monitor closely 04/12/2025: Continue the current management with Librium and Ativan as needed IV fluids Multivitamins Hypomagnesemia: Replace IV Plan discussed with: Patient My Orders Orders - EVE RAMIREZ MD Procedure Category Date Status Time Magnesium Sulfate PHA 04/12/25 In Process 1gm/100ml 10:00 Date of Service: Apr 12, 2025 Billing Provider: EVE RAMIREZ MD Common Visit Codes: [id number] INP/OBS CARE(HIGH) EVE RAMIREZ MD Apr 12, 2025 11:23
[2025-04-12] MEDS: HYDROcodone-ACET 5/325MG TAB PO PRN (21:44)
[2025-04-13 00:46] VITALS: BP 108/69; PULSE 76; RESP 16; TEMP 98.3; O2SAT 95
[2025-04-13 05:00] VITALS: BP_SYST 100; BP_SYST 108; BP_DIAS 53; BP_DIAS 59; PULSE 64; PULSE 79; RESP 16; RESP 18; TEMP 98; TEMP 98.3; O2SAT 94
[2025-04-13 07:16] LABS: Anion Gap 10 (5-15); Carbon Dioxide 24 mmol/L (20-31); Chloride 106 mmol/L (98-107); Potassium 4.0 mmol/L (3.5-5.1); Sodium 140 mmol/L (136-145)
[2025-04-13 07:18] LABS: Calcium 8.7 mg/dL (8.7-10.4)
[2025-04-13 07:23] LABS: BUN/Creatinine Ratio 8.9 (10.0-20.0); Blood Urea Nitrogen 7 mg/dL (9-23); Glucose 87 mg/dL (74-106); Magnesium 1.9 mg/dL (1.6-2.6)
[2025-04-13 08:00] VITALS: PULSE 61; RESP 16
[2025-04-13 08:58] VITALS: BP 106/62; PULSE 56; RESP 16; TEMP 98; O2SAT 98
--- NOTE | 2025-04-13 09:04 | DVHDS2 ---
Discharge Summary Date of Admission Apr 09, 2025 at 22:10 Date of Discharge: Apr 13, 2025 Labs/Diagnostic Data: Laboratory Results Test 04/13/25 06:00 04/11/25 05:51 04/10/25 05:51 04/09/25 18:05 Sodium Level 140 mmol/L (136-145) Potassium Level 4.0 mmol/L (3.5-5.1) Chloride Level 106 mmol/L (98-107) Carbon Dioxide Level 24 mmol/L (20-31) Anion Gap 10 (5-15) Blood Urea Nitrogen 7 mg/dL (9-23) Creatinine 0.79 mg/dL (0.550-1.02) Glomerular Filtration Rate Calc 102 mL/min (>90) BUN/Creatinine Ratio 8.9 (10.0-20.0) Serum Glucose 87 mg/dL (74-106) Calcium Level 8.7 mg/dL (8.7-10.4) Magnesium Level 1.9 mg/dL (1.6-2.6) Total Bilirubin 0.6 mg/dL (0.2-1.0) Aspartate Amino Transferase (AST) 23 U/L (13-40) Alanine Aminotransferase (ALT) 17 U/L (7-40) Alkaline Phosphatase 93 U/L (46-116) Total Protein 6.5 g/dL (5.7-8.2) Albumin 4.0 g/dL (3.2-4.8) White Blood Count 6.3 10^3/uL (4.4-10.8) Red Blood Count 4.03 10^6/uL (4.0-5.20) Hemoglobin 12.3 g/dL (12.2-16.2) Hematocrit 35.4 % (36.0-46.0) Mean Corpuscular Volume 87.9 fL (80.0-100.0) Mean Corpuscular Hemoglobin 30.5 pg (28.0-32.0) Mean Corpuscular Hemoglobin Concent 34.7 g/dL (32.0-36.0) Red Cell Distribution Width 15.9 % (11.8-14.3) Platelet Count 238 10^3/uL (140-450) Mean Platelet Volume 7.1 fL (6.9-10.8) Neutrophils (%) (Auto) 56.3 % (37.0-80.0) Lymphocytes (%) (Auto) 35.1 % (10.0-50.0) Monocytes (%) (Auto) 6.1 % (0.0-12.0) Eosinophils (%) (Auto) 1.8 % (0.0-7.0) Basophils (%) (Auto) 0.7 % (0.0-2.0) Neutrophils # (Auto) 3.6 10 ^3/uL (1.6-8.6) Lymphocytes # (Auto) 2.2 10 ^3/uL (0.4-5.4) Monocytes # (Auto) 0.4 10 ^3/uL (0-1.3) Eosinophils # (Auto) 0.1 10 ^3/uL (0-0.8) Basophils # (Auto) 0 10 ^3/uL (0-0.2) Nucleated Red Blood Cells 0.0 % Magnesium Lvl (Mg Sulfate Therapy) 1.82 mg/dL (4.0-7.1) Plasma/Serum Blood Alcohol 198.9 mg/dL (<10) Test 04/09/25 17:44 Urine Opiates Screen Neg (NEGATIVE) Urine Fentanyl Screen Neg (NEGATIVE) Urine Barbiturates Screen Neg (NEGATIVE) Urine Phencyclidine Screen Neg (NEGATIVE) Urine Amphetamines Screen Neg (NEGATIVE) Urine Benzodiazepines Screen Pos (NEGATIVE) Urine Cocaine Screen Neg (NEGATIVE) Urine Cannabinoids Screen Neg (NEGATIVE) Other Laboratory Tests 04/13/25 06:00 04/10/25 05:51 Brief Hx & Hospital Course: Final diagnoses: Alcohol withdrawal Toxic encephalopathy Metabolic acidosis Alcohol intoxication She was admitted for tremors and restless less and alcohol withdrawal She was confused and therefore she was started on benzodiazepines She was given multivitamins IV fluids were given Overall she improved very slowly daily and today she is more alert and oriented and she is calm Tremors is resolved She is planning to go and have outpatient rehab The patient is stable for discharge Condition at Discharge: Stable Final Diagnosis/Problems List Alcohol withdrawal Toxic encephalopathy Metabolic acidosis Alcohol intoxication Discharge Disposition: Home SNF Discharge Will this Physician continue t: No Discharge Instruct/Medications Scheduled Acetaminophen W/ Codeine (Acetaminophen/Codeine), 1 TAB PO TID Acyclovir (Zovirax Tablet), 1 TAB PO BID Diclofenac Potassium (Diclofenac Potassium), 1 TAB PO TIDP Vit W/ Ferrous Fumara ( One Daily), 1 TAB PO DAILY, (Reported) Scheduled PRN Calcium Carbonate (Tums), 500 MG PO for FOR STOMACH DISTRESS, (Reported) Miscellaneous Medications Trazodone HCl (Trazodone Hydrochorlide), 150 MG PO, (Reported) Discharge Statement: "Patient was advised to return to the ER or call 911 if any headaches, dizziness, shortness of breath, chest pain, abdominal pain, bleeding, fevers, or worsening of medical condition. Patient was counseled about treatment plan, medications, possible side effects, patientverbalized understanding. All questions were answered to the best of my ability. This discharge took greater then 30 minutes in planning, reviewing documentation, counseling the patient, and discussing with other team members." ASSESSMENT ASSESSMENT Assessment Date of Service: Apr 13, 2025 Billing Provider: EVE RAMIREZ MD Common Visit Codes: 63179-JV[facility]/OBS DISCH DAY >30min EVE RAMIREZ MD Apr 13, 2025 09:04
[2025-04-13] MEDS ORDERED: FOLI-119 PO (09:07)
[2025-04-13] MEDS ORDERED: THIA100T13 PO (09:07)
[2025-04-13] MEDS ORDERED: MULT-351 PO (09:07)
[2025-04-13 09:43] VITALS: TEMP 36.7
== END 2025-04-13 12:20 | disposition home or self-care (01) | DRG 52 ==
LOC: ER 17:21 → OVERFLOW 22:10 → TELE-EAST 23:54
PROVIDERS: ADMIT Internal Medicine Geriatric Medicine; ATTEND Internal Medicine Geriatric Medicine
DX: G92.9 Unspecified toxic encephalopathy (principal); E87.20 Acidosis, unspecified; F41.9 Anxiety disorder, unspecified; F32.A Depression, unspecified; F17.210 Nicotine dependence, cigarettes, uncomplicated; F10.239 Alcohol dependence with withdrawal, unspecified; F10.229 Alcohol dependence with intoxication, unspecified; Y90.6 Blood alcohol level of 120-199 mg/100 ml; Z79.899 Other long term (current) drug therapy
CPT/HCPCS: 36415; 80048; 80053; 80307; 80320; 83735; 85025; 93005; 96365; 96375; 99291; G0378; J2405; J7060